=== PATIENT | male | born 1975 | race Caucasian/White ===

== ENCOUNTER → 2018-03-17 14:14 | Outpatient (CLI) | payer BC, SELFPAY ==
[2018-03-17 15:59] LABS: Anion Gap 9 (5-15); BUN 13 mg/dL (7-18); BUN/Creat Ratio 13.6 RATIO (10-20); Calcium,Total 9.1 mg/dL (8.5-10.1); Chloride 101 mmol/L (98-107); Creatinine, Serum 0.96 mg/dL (0.70-1.30); EST Glomerular Filtration Rate 92 mL/min (>60); Est Glom Filt Rate - Afr Amer 111 mL/min (>60); Glucose 92 mg/dL (74-106); Potassium 3.5 mmol/L (3.5-5.1); Sodium Level 139 mmol/L (136-145)
== END ==
PROVIDERS: Family Provider Family Medicine; PCP Family Medicine; Visit Provider Family Medicine
DX: I10 Essential (primary) hypertension (principal)
CPT/HCPCS: 36415; 80048

== ENCOUNTER 2018-07-25 16:43 | Emergency (ER) | payer BC, SELFPAY ==
[2018-07-25 16:44] VITALS: BP 154/100; PULSE 74; RESP 16; TEMP 36.5; O2SAT 97; BMI 25.1
--- NOTE | 2018-07-25 16:58 | EKG12_ITS ---
Test Reason : CHEST PAIN Blood Pressure : / mmHG Vent. Rate : 067 BPM Atrial Rate : 067 BPM P-R Int : 146 ms QRS Dur : 092 ms QT Int : 372 ms P-R-T Axes : 034 005 015 degrees QTc Int : 393 ms Normal sinus rhythm Normal ECG Confirmed by LETY JEREZ MD ([id number]), content editor MACK NOGUEIRA ([id number]) on 07/28/2018 3:24:40 PM Referred By: VIC Confirmed By:LETY JEREZ MD
--- NOTE | 2018-07-25 17:00 | RAD_ITS ---
STUDY: X-RAY CHEST REASON FOR EXAM: Male, 43 years old. Sided onset of chest pain. TECHNIQUE: Single frontal view of the chest. COMPARISON: None. FINDINGS: The lungs are clear and expanded. There is no demonstrated pleural abnormality. Normal size heart. Normal mediastinum and anamaria. Normal visualized pulmonary arteries. Normal visualized aortic arch and descending thoracic aorta. Normal visualized thoracic spine. Normal visualized ribs, clavicles, and shoulders. There is no demonstrated abnormality of the visualized soft tissue structures of the upper abdomen. RAD/Chest 1 View (Portable) IMPRESSION: No acute cardiopulmonary process. Electronically Signed: Sara Cheung MD at 17:17 EDT Tel , Service support ,
--- NOTE | 2018-07-25 17:17 | ED.VISSUMM ---
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 Today he had sudden onset of left lateral rib cage pain and went up and down his left lateral ribs along the mid axillary line. And resolved within a few seconds. No other complaints. No trauma. No shortness of breath. No fever. No recent exertional chest pain. Number episode several months ago. Never was evaluated at that time. He has never had any cardiac disease. He has no history of DVT or PEs. He denies any recent travel or surgery. No leg pain or swelling. No hemoptysis. Currently is completely symptom-free. He has had a negative stress test years ago. Physical Examination: Well-appearing middle-age male. Vital signs are stable afebrile. His pulse ox is 97% on room air no signs of hypoxia. Initial blood pressure 154/100. H EENT exam unremarkable. Neck nontender. Lungs clear to auscultation bilaterally. Heart regular rhythm no murmur. Chest wall completely nontender. No crepitance or subcu air. Abdomen soft and nontender. Normal bowel sounds. He is moving all 4 extremities. They are neurovascularly intact. Calves are nontender without edema or cords. Back exam nontender. Neurologically is awake alert with no focal motor deficits. Test Results: Patient will undergo cardiac workup. His initial EKG is a sinus rhythm rate is 67 with no acute signs of IN or ischemia. My clinical suspicion for this being cardiac is very low. CBC shows a normal hemoglobin 14. Chemistries normal normal creatinine and gap troponin normal. Chest x-ray portable one view read both by myself the radiologist shows no acute abnormality. Normal cardiac silhouette and mediastinum. Emergency Department Course and Treatment: Patient has had no recent exertional chest pain or exertional shortness of breath. Treatment Plan: Repeat exam is doing well seen. He has been pain-free the entire time in the ER. Patient be discharged to home to follow-up with his primary care physician as needed. Return if worse. Disposition: Discharge Impression: Left lateral rib cage/chest pain of uncertain etiology This note was generated with [employer] dictation software. It may contain incorrect words, spelling, and punctuation that were not noted in review of the chart prior to signing ED Disposition - Plan for ED Patient: Chief Complaint: Chest Pain Referrals: Giulia Gonzalez MD [Primary Care Provider] -
[2018-07-25] MEDS: Aspirin 81 MG TAB.CHEW 324 MG PO (17:18)
--- NOTE | 2018-07-25 17:20 | ED.DCSUM_ITS ---
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 Today he had sudden onset of left lateral rib cage pain and went up and down his left lateral ribs along the mid axillary line. And resolved within a few seconds. No other complaints. No trauma. No shortness of breath. No fever. No recent exertional chest pain. Number episode several months ago. Never was evaluated at that time. He has never had any cardiac disease. He has no history of DVT or PEs. He denies any recent travel or surgery. No leg pain or swelling. No hemoptysis. Currently is completely symptom-free. He has had a negative stress test years ago. Physical Examination: Well-appearing middle-age male. Vital signs are stable afebrile. His pulse ox is 97% on room air no signs of hypoxia. Initial blood pressure 154/100. H EENT exam unremarkable. Neck nontender. Lungs clear to auscultation bilaterally. Heart regular rhythm no murmur. Chest wall completely nontender. No crepitance or subcu air. Abdomen soft and nontender. Normal bowel sounds. He is moving all 4 extremities. They are neurovascularly intact. Calves are nontender without edema or cords. Back exam nontender. Neurologically is awake alert with no focal motor deficits. Test Results: Patient will undergo cardiac workup. His initial EKG is a sinus rhythm rate is 67 with no acute signs of ID or ischemia. My clinical suspicion for this being cardiac is very low. CBC shows a normal hemoglobin 14. Chemistries normal normal creatinine and gap troponin normal. Chest x-ray portable one view read both by myself the radiologist shows no acute abnormality. Normal cardiac silhouette and mediastinum. Emergency Department Course and Treatment: Patient has had no recent exertional chest pain or exertional shortness of breath. Treatment Plan: Repeat exam is doing well seen. He has been pain-free the entire time in the ER. Patient be discharged to home to follow-up with his primary care physician as needed. Return if worse. Disposition: Discharge Impression: Left lateral rib cage/chest pain of uncertain etiology This note was generated with [employer] dictation software. It may contain incorrect words, spelling, and punctuation that were not noted in review of the chart prior to signing ED Disposition - Plan for ED Patient: Chief Complaint: Chest Pain Referrals: Giulia Gonzalez MD [Primary Care Provider] -
[2018-07-25 17:42] LABS: Absolute Lymphocyte Count 1.35 X10^3/ul (0.83-4.51); Absolute Neutrophil Count 1.6 X10^3/uL (2.0-7.7); Basophil# 0.02 X10^3/uL; Basophil% 0.6 % (0-1); Eosinophil# 0.12 X10^3/uL; Eosinophils% 3.4 % (0-5); Hematocrit 43.1 % (40-54); Hemoglobin 14.1 g/dl (13.0-16.5); Lymphocyte # 1.35 X10^3/ul (4.0); Lymphocyte % 38.4 % (19-41); Mean Corp Hgb Conc 32.7 g/gl (32-36); Mean Corpuscular Hgb 31.3 pg (27.0-32.0); Mean Corpuscular Volume 95.6 fL (80-94); Mean Platelet Vol. 10.7 fl (6.2-12.0); Monocyte# 0.48 X10^3/uL; Monocyte% 13.6 % (0-10); Neutrophil # 1.55 X10^3/uL (2.7-7.7); Platelet Count 156 K/mm3 (150-450); RBC Distribution Width CV 12.4 % (11.6-14.6); RBC Distribution Width SD 43.1 fl (35.1-43.9); Red Blood Count 4.51 M/mm3 (4.6-6.2); White Blood Count 3.5 K/mm3 (4.4-11.0)
[2018-07-25 17:51] LABS: Anion Gap 8 (5-15); BUN 17 mg/dL (7-18); BUN/Creat Ratio 18.3 RATIO (10-20); Calcium,Total 8.3 mg/dL (8.5-10.1); Chloride 104 mmol/L (98-107); Creatinine, Serum 0.93 mg/dL (0.70-1.30); EST Glomerular Filtration Rate 94 mL/min (>60); Est Glom Filt Rate - Afr Amer 114 mL/min (>60); Estimated Creatinine Clearance 102.42 ml/min; Glucose 94 mg/dL (74-106); Potassium 3.7 mmol/L (3.5-5.1); Sodium Level 140 mmol/L (136-145)
[2018-07-25 17:54] LABS: POSITIVE COUNT NO; POSITIVE DIFFERENTIAL NO; POSITIVE MORPHOLOGY NO
[2018-07-25 18:15] VITALS: PULSE 80; RESP 16; O2SAT 97
--- NOTE | 2018-07-25 18:18 | ED.DEP ---
ED Disposition - Plan for ED Patient: Disposition: Home or Assisted Living Chief Complaint: Chest Pain Instructions: ED Chest Pain Atypical Unkn Cause Referrals: Giulia Gonzalez MD [Primary Care Provider] - 1 Week Additional Instructions: All your labs, EKG and chest x-ray were normal today. Follow-up your primary care physician. Return to ER feeling worse.
== END 2018-07-25 18:32 | disposition home or self-care (01) ==
PROVIDERS: Emergency Provider Emergency Medicine; Family Provider Family Medicine; PCP Family Medicine
DX: R07.89 Other chest pain (principal); I10 Essential (primary) hypertension
CPT/HCPCS: 71045; 80048; 84484; 85025; 93005; 99284; A4216

== ENCOUNTER 2018-10-01 18:39 | Emergency (ER) | payer BC, SELFPAY ==
[2018-10-01 18:39] VITALS: BP 164/100; PULSE 80; RESP 16; TEMP 36.7; O2SAT 99; BMI 26.4
--- NOTE | 2018-10-01 18:44 | EKG12_ITS ---
Test Reason : CP Blood Pressure : / mmHG Vent. Rate : 082 BPM Atrial Rate : 082 BPM P-R Int : 146 ms QRS Dur : 096 ms QT Int : 354 ms P-R-T Axes : 066 009 036 degrees QTc Int : 413 ms Normal sinus rhythm Normal ECG Confirmed by LETY JEREZ MD ([id number]), editor dictionary MACK NOGUEIRA ([id number]) on 10/03/2018 1:18:26 PM Referred By: DOMINGUEZ Confirmed By:LETY JEREZ MD
[2018-10-01] MEDS: Aspirin 81 MG TAB.CHEW 324 MG PO (18:50)
[2018-10-01 18:51] VITALS: O2SAT 100
--- NOTE | 2018-10-01 18:52 | ED.VISSUMM ---
- ER Visit Summary Date of Service: 10/01/18 Chief Complaint: Chest pain resolved History of Present Illness: The patient is a 43 M of hypertension. No prior cardiac disease. Patient states tonight he was getting his empty trash can walked up a steep driveway shortness of breath and mild left-sided chest discomfort. No radiation to his jaw, neck, left arm or back. Currently he is pain-free symptom-free. Denies any nausea, diaphoresis or recent symptoms. No melena. No history of DVT or PE. No leg pain or swelling. No recent travel, surgery, immobilization or hospitalization. Currently says he feels well. He is never had a stress test or heart cath. Physical Examination: Middle-aged male. No acute distress. Currently symptom-free. Vital signs are stable and afebrile. Initial blood pressure 164/100. Pulse ox 99% on room air no hypoxia. HEENT exam unremarkable. Neck nontender. No JVD. Lungs clear to auscultation bilaterally. Heart regular rate and rhythm no murmur. Chest nontender. Abdomen soft nontender nondistended normal bowel sounds no peritoneal signs. Soft. Patient moving all 4 extremities. Neurovascular intact. Calves nontender without edema or cords. Equal symmetrical radial pulses. Back exam normal. Neurologically is awake alert with no focal motor deficits. Test Results: CBC normal with a white count of 4. Hemoglobin 15. Electrolytes unremarkable. Normal creatinine gap. Troponin normal. EKG sinus rhythm rate 82 and unchanged from EKG from July of this year. Chest x-ray normal read both by myself and the radiologist. Emergency Department Course and Treatment: Patient will undergo cardiac workup. His MORA score currently is 0. He himself is a non-smoker. He has no significant cardiac risk factors. He has no significant family history of any by young age having coronary disease. Treatment Plan: Repeat exam patient is doing well at 2039. I went over all test results of both here and his . He was offered but deferred a repeat troponin. He has been pain-free the entire time in the ER. They are both comfortable with him being treated as an outpatient with follow-up outpatient stress testing. I did speak to Dr. Rosalino Choi on-call for the patient's primary care physician and they will ensure follow-up on Saturday and outpatient stress testing will be obtained. Disposition: Discharge Impression: Acute chest pain of uncertain etiology This note was generated with [employer] dictation software. It may contain incorrect words, spelling, and punctuation that were not noted in review of the chart prior to signing ED Disposition - Plan for ED Patient: Chief Complaint: Chest Pain Referrals: Giulia Gonzalez MD [Primary Care Provider] -
--- NOTE | 2018-10-01 18:59 | RAD_ITS ---
STUDY: X-RAY CHEST REASON FOR EXAM: Male, 43 years old. Chest tightness and shortness of breath TECHNIQUE: AP portable COMPARISON: October 24, 2018 FINDINGS: The lungs are clear and expanded. There is no demonstrated pleural abnormality. Normal size heart. Normal mediastinum and anamaria. Normal visualized pulmonary arteries. Normal visualized aortic arch and descending thoracic aorta. Normal visualized thoracic spine. Normal visualized ribs, clavicles, and shoulders. There is no demonstrated abnormality of the visualized soft tissue structures of the upper abdomen. RAD/Chest 1 View (Portable) IMPRESSION: Normal x-ray examination of the chest. Electronically Signed: Ben Garcia MD at 20:24 EST , Service support ,
[2018-10-01 19:35] LABS: Absolute Lymphocyte Count 1.57 X10^3/ul (0.83-4.51); Absolute Neutrophil Count 2.6 X10^3/uL (2.0-7.7); Basophil# 0.04 X10^3/uL; Basophil% 0.8 % (0-1); Eosinophil# 0.14 X10^3/uL; Eosinophils% 2.9 % (0-5); Hematocrit 46.5 % (40-54); Hemoglobin 15.3 g/dl (13.0-16.5); Lymphocyte # 1.57 X10^3/ul (4.0); Mean Corp Hgb Conc 32.9 g/gl (32-36); Mean Corpuscular Hgb 31.5 pg (27.0-32.0); Mean Corpuscular Volume 95.7 fL (80-94); Monocyte# 0.44 X10^3/uL; Monocyte% 9.2 % (0-10); Neutrophil # 2.57 X10^3/uL (2.7-7.7); Neutrophil % 54.1 % (47-70); Platelet Count 206 K/mm3 (150-450); RBC Distribution Width CV 12.1 % (11.6-14.6); RBC Distribution Width SD 42.2 fl (35.1-43.9); Red Blood Count 4.86 M/mm3 (4.6-6.2); White Blood Count 4.8 K/mm3 (4.4-11.0)
[2018-10-01 19:40] LABS: POSITIVE COUNT NO; POSITIVE DIFFERENTIAL NO; POSITIVE MORPHOLOGY NO
[2018-10-01 19:46] VITALS: BP 134/85; PULSE 65; RESP 18; O2SAT 100
[2018-10-01 19:47] LABS: Anion Gap 7 (5-15); BUN 11 mg/dL (7-18); BUN/Creat Ratio 10.3 RATIO (10-20); Calcium,Total 8.9 mg/dL (8.5-10.1); Chloride 104 mmol/L (98-107); Creatinine, Serum 1.07 mg/dL (0.70-1.30); EST Glomerular Filtration Rate 80 mL/min (>60); Est Glom Filt Rate - Afr Amer 97 mL/min (>60); Estimated Creatinine Clearance 89.02 ml/min; Glucose 123 mg/dL (74-106); Potassium 3.9 mmol/L (3.5-5.1); Sodium Level 143 mmol/L (136-145)
[2018-10-01 20:05] VITALS: BP 134/84; PULSE 67; RESP 16; O2SAT 100
[2018-10-01 21:01] VITALS: BP 131/80; PULSE 60; RESP 16; O2SAT 98
--- NOTE | 2018-10-01 21:01 | ED.DEP ---
ED Disposition - Plan for ED Patient: Disposition: Home or Assisted Living Chief Complaint: Chest Pain Instructions: ED Chest Pain Atypical Unkn Cause Referrals: Giulia Gonzalez MD [Primary Care Provider] - As soon as possible Additional Instructions: Call and follow-up with Dr. Giulia Gonzalez's office on Saturday. I spoke to Dr. Rosalino Choi on-call for her tonight. They will work with you to get set up an outpatient stress test. Daily baby aspirin for the time being. Return to ER if increasing chest pain, shortness of breath or you feel worse. No heavy exertion until follow-up stress testing and results are finalized.
== END 2018-10-01 21:06 | disposition home or self-care (01) ==
PROVIDERS: Emergency Provider Emergency Medicine; Family Provider Family Medicine; PCP Family Medicine
DX: R07.9 Chest pain, unspecified (principal); I10 Essential (primary) hypertension; R19.7 Diarrhea, unspecified
CPT/HCPCS: 71045; 80048; 84484; 85025; 93005; 99285; A4216

== ENCOUNTER → 2019-03-16 15:14 | Outpatient (CLI) | payer BC, SELFPAY ==
[2019-03-16 18:29] LABS: Anion Gap 10 (5-15); BUN 16 mg/dL (7-18); BUN/Creat Ratio 16.6 RATIO (10-20); Calcium,Total 9.2 mg/dL (8.5-10.1); Chloride 104 mmol/L (98-107); Creatinine, Serum 0.96 mg/dL (0.70-1.30); EST Glomerular Filtration Rate 90 mL/min (>60); Est Glom Filt Rate - Afr Amer 109 mL/min (>60); Glucose 107 mg/dL (74-106); Potassium 3.7 mmol/L (3.5-5.1); Sodium Level 140 mmol/L (136-145)
== END ==
PROVIDERS: Family Provider Family Medicine; PCP Family Medicine; Referring Provider Family Medicine; Visit Provider Family Medicine
DX: I10 Essential (primary) hypertension (principal)
CPT/HCPCS: 36415; 80048

== ENCOUNTER → 2019-08-19 14:50 | Outpatient (CLI) | payer BC, SELFPAY ==
[2019-08-19 16:08] LABS: Anion Gap 5 (5-15); BUN 20 mg/dL (7-18); BUN/Creat Ratio 20.8 RATIO (10-20); Calcium,Total 8.7 mg/dL (8.5-10.1); Chloride 102 mmol/L (98-107); Cholesterol 233 mg/dL (200); Creatinine, Serum 0.96 mg/dL (0.70-1.30); EST Glomerular Filtration Rate 90 mL/min (>60); Est Glom Filt Rate - Afr Amer 109 mL/min (>60); Glucose 98 mg/dL (74-106); High Density Lipoprotein 42 mg/dL; Potassium 3.7 mmol/L (3.5-5.1); Sodium Level 140 mmol/L (136-145); Triglycerides 476 mg/dL
== END ==
PROVIDERS: Family Provider Family Medicine; PCP Family Medicine; Referring Provider Family Medicine; Visit Provider Family Medicine
DX: I10 Essential (primary) hypertension (principal)
CPT/HCPCS: 36415; 80048; 80061

== ENCOUNTER → 2020-03-02 15:04 | Outpatient (CLI) | payer BC, SELFPAY ==
[2020-03-02 18:02] LABS: Anion Gap 4 (5-15); BUN 19 mg/dL (7-18); BUN/Creat Ratio 19.1 RATIO (10-20); Calcium,Total 9.3 mg/dL (8.5-10.1); Chloride 102 mmol/L (98-107); EST Glomerular Filtration Rate 86 mL/min (>60); Est Glom Filt Rate - Afr Amer 104 mL/min (>60); Glucose 79 mg/dL (74-106); Potassium 3.3 mmol/L (3.5-5.1); Sodium Level 138 mmol/L (136-145)
== END ==
PROVIDERS: PCP Family Medicine; Referring Provider Family Medicine; Visit Provider Family Medicine
DX: I10 Essential (primary) hypertension (principal)
CPT/HCPCS: 36415; 80048